=== PATIENT | female | born 1955 | race Two or more races ===

== ENCOUNTER 2018-05-14 07:27 | Outpatient (CLI) | payer OTHER ==
[~2018-05-14 07:27] MED LIST: ACTONEL150 MG PO; JANUMET 50-1,1 UDTAB PO
== END 2018-05-14 07:41 | disposition home or self-care (01) ==
LOC: TOM 07:27
DX: Z86.010 Personal history of colon polyps (principal)

== ENCOUNTER 2024-05-03 20:27 | Emergency (ER) | payer OTHER ==
[~2024-05-03] VITALS: Ht 160 cm; Wt 83.0 kg
[2024-05-03] MEDS ORDERED: VITAMIN D310 MCG/1 M (21:02)
[2024-05-03] MEDS ORDERED: IRBESARTAN-HCT1 EACH (21:03)
[2024-05-03] MEDS ORDERED: GLIMEPIRIDE2 M1 (21:03)
[2024-05-03] MEDS ORDERED: ALLOPURINOL100 MG (21:03)
[2024-05-03] MEDS ORDERED: BARIUM SULFATE 450 ML ORAL.SUSP PO ONE (21:30)
[2024-05-03] MEDS ORDERED: 0.9 % SODIUM CHLORIDE 1,000 ML IV SCH (21:30)
[2024-05-03 21:50] LABS: HEMATOCRIT 36.1 % (36.0-45.00); MEAN CELL VOLUME 88.8 fL (80.00-100.00); MEAN CORPUSCULAR HEMOGLOBIN 29.5 pg (27.00-32.0); MEAN CORPUSCULAR HGB CONC 33.3 g/dl (32.0-36.0); PLATELET COUNT 196 K/uL (150-450); RED BLOOD COUNT 4.07 M/uL (4.00-6.00); RED CELL DISTRIBUTION WIDTH 13.8 % (11.5-14.5)
[2024-05-03 22:10] LABS: CALCIUM 9.2 mg/dL (8.5-10.1); CREATININE SERUM 0.67 mg/dL (0.55-1.02); GFR 86.76; POTASSIUM 3.8 mEq/L (3.5-5.1)
[2024-05-03 22:11] LABS: PH,URINE 6.5 (5.0-8.0); URINE APPEARANCE Clear; URINE BILIRRUBIN Negative (NEGATIVE); URINE BLOOD Negative; URINE COLOR Yellow; URINE GLUCOSE Negative (NEGATIVE); URINE KETONE Negative (NEGATIVE); URINE LEUKOCYTE Negative; URINE NITRATE Negative; URINE PROTEIN Negative (NEGATIVE); URINE UROBILINOGEN 0.2 E.U./dl
[2024-05-03 22:15] LABS: URINE BACTERIA 547.8 uL (0.0-1933); URINE EPITHELIAL CELLS 4.6 uL (0.0-38.8); URINE RBC 4.5 uL (0.0-20.8); URINE WBC 9.7 uL (0.0-23.2)
[2024-05-04] MEDS ORDERED: ACETAMINOPHEN 500 MG GEL..CAP PO STA (01:54)
[2024-05-04] MEDS ORDERED: ACETAMINOPHEN 500 MG GEL..CAP PO ONE (02:53)
[2024-05-04] MEDS ORDERED: PROMETHAZINE HCL 25 MG/ML AMPUL IM STA (04:34)
[2024-05-04] MEDS ORDERED: FAMOTIDINE/PF 20 MG/2 ML VIAL IV PUSH STA (04:35)
[2024-05-04] MEDS ORDERED: HYOSCYAMINE SULFATE 0.125 MG TAB.SUBL SL STA (04:35)
[2024-05-04] MEDS ORDERED: FAMOTIDINE/PF 20 MG/2 ML VIAL ONE (04:38)
[2024-05-04] MEDS ORDERED: HYOSCYAMINE SULFATE 0.125 MG TAB.SUBL ONE (04:38)
[2024-05-04] MEDS ORDERED: PROMETHAZINE HCL 50 MG/ML AMPUL IM ONE (04:38)
[2024-05-04] MEDS ORDERED: METRONIDAZOLE500 MG PO (07:41)
[2024-05-04] MEDS ORDERED: CIPRO500 MG PO (07:41)
[2024-05-04] MEDS ORDERED: LEVSIN/SL0.125 MG SL (07:41)
[2024-05-04] MEDS ORDERED: PEPCID40 MG PO (07:42)
[2024-05-04] MEDS ORDERED: ONDANSETRON ODT8 MG PO (07:42)
== END 2024-05-04 08:59 ==
LOC: ER 20:29
PROVIDERS: Emergency Medicine
DX: K57.90 Diverticulosis of intestine, part unspecified, without perforation or abscess without bleeding (principal); K52.89 Other specified noninfective gastroenteritis and colitis; R42 Dizziness and giddiness; I10 Essential (primary) hypertension; E11.9 Type 2 diabetes mellitus without complications; Z91.013 Allergy to seafood
CPT/HCPCS: 36415; 74177; 96365; 96366; 96372; 99284; J2550; J3490 ×2; J7030; Q9965

== ENCOUNTER 2024-06-03 09:54 | Outpatient (CLI) | payer OTHER ==
[~2024-06-03 09:54] MED LIST changes: +ALLOPURINOL100 MG; +CIPRO500 MG PO; +GLIMEPIRIDE2 M1; +IRBESARTAN-HCT1 EACH; +LEVSIN/SL0.125 MG SL; +METRONIDAZOLE500 MG PO; +ONDANSETRON ODT8 MG PO; +PEPCID40 MG PO; +VITAMIN D310 MCG/1 M
== END 2024-06-03 09:57 | disposition home or self-care (01) ==
LOC: RAD 09:54
PROVIDERS: ATTEND Specialist
DX: R05.9 Cough, unspecified (principal)

== ENCOUNTER 2024-06-20 11:47 | Day surgery (SDC) | payer OTHER ==
[~2024-06-20 11:47] MED LIST changes: +LIPITOR40 MG PO
[2024-06-20] MEDS ORDERED: POVIDONE-IODINE 118 ML BOTT TOP ONE (23:15)
[2024-06-21] MEDS ORDERED: LIDOCAINE HCL 1% 10ML VIAL IJ ONE (13:45)
== END 2024-06-21 03:15 | disposition home or self-care (01) ==
LOC: CIR.AMB 11:47
PROVIDERS: ATTEND Specialist
DX: N95.0 Postmenopausal bleeding (principal); Z91.013 Allergy to seafood